=== PATIENT | female | born 1975 | race Caucasian/White ===

== ENCOUNTER 2021-06-04 18:46 | Emergency (ER) | payer OTHER ==
[~2021-06-04] VITALS: Ht 167.6 cm; Wt 72.6 kg
[2021-06-04 22:00] VITALS: BP 137/90
== END 2021-06-04 23:09 | disposition home or self-care (01) ==
LOC: EDBD 18:46 → ER 18:51
DX: S80.11XA Contusion of right lower leg, initial encounter (principal); S40.812A Abrasion of left upper arm, initial encounter; R07.89 Other chest pain; M62.838 Other muscle spasm; V43.52XA Car driver injured in collision with other type car in traffic accident, initial encounter; Y93.89 Activity, other specified; Y92.410 Unspecified street and highway as the place of occurrence of the external cause; Y99.8 Other external cause status
CPT/HCPCS: 73060; 73090